=== PATIENT | male | born 1985 | race Hispanic/Latino ===

== ENCOUNTER 2019-10-29 12:25 | Emergency (ER) | payer SELFPAY ==
[2019-10-29 12:33] VITALS: BP 132/88; PULSE 82; RESP 18; TEMP 36.8; O2SAT 96
--- NOTE | 2019-10-29 12:49 | ECG_ITS ---
Measurements Intervals [place] Rate: 84 P: 58 [place]: 160 QRS: 41 QRSD: 79 T: 22 QT: 350 QTc: 414 Interpretive Statements SINUS RHYTHM RSR' IN V1 OR V2, PROBABLY NORMAL VARIANT BORDERLINE ECG Electronically Signed On 10-29-2019 15:24:51 CDT by Raghu Ramírez D.O.
--- NOTE | 2019-10-29 12:52 | ED.GENADULT ---
HPI - General Adult General Chief complaint: Chest Pain Stated complaint: Pain in stomach Source: patient and RN notes reviewed Mode of arrival: ambulatory Limitations: no limitations History of Present Illness HPI narrative: This is a 34 years old male presents to the office for an evaluation of epigastric/chest pain for two hours prior to arrival. Pain is worse when he touches it or takes a deep breathe. Denies associated symptoms such as cough, congestion, vomiting or diarrhea. Last meal was 4pm yesterday; he has been sleeping till the pain woke him. Rate pain 6/10; describes as heaving at times. Denies cardiac history in the past. He admits to alcohol abuse in the past but not recently, however he still drink occasionally. He admits to smoking about 3 cigarretes/month. Related Data Allergies Allergy/AdvReac Type Severity Reaction Status Date / Time No Known Allergies Allergy Verified 10/29/19 13:15 Review of Systems Review of Systems: Narrative: CONSTITUTIONAL: Denies fever, chills ENT: Denies rhinorrhea, congestion, sore throat, otalgia. CARDIOVASCULAR: Denies chest pain, palpitation, edema. RESPIRATORY: Denies dyspnea, wheezing, cough GASTROINTESTINAL: Denies nausea, vomiting, diarrhea. GENITOURINARY: Denies urinary symptoms SKIN: Denies rash MUSCULOSKELETAL: Denies acute back pain NEUROLOGIC: Denies lightheaded PMFSH Past Medical History Medical History (Updated 10/29/19 @ 13:17 by JIMBO Duarte) Diabetes mellitus, type II when he was in [place] >6years ago Social History Social History (Updated 10/29/19 @ 13:17 by JIMBO Duarte) Smoking status: Current every day smoker Tobacco type: cigarettes Alcohol intake: current Substance use: never Comments At time of signature, I agree with nursing past medical, surgical, social and family history. There is no relevant family history pertinent to the presenting complaint. Exam Narrative: Exam Narrative: GENERAL: This is a well-nourished, well-developed patient, in no apparent distress. EYES: Sclera clear/white. Vision is grossly intact. EARS: External ears normal, auditory canals clear and without drainage, TMs normal without perforation. Hearing grossly intact. NOSE: External nose normal with no obvious nasal discharge, nares without redness, no rhinorrhea. THROAT: Mucous membranes moist, posterior pharynx clear. NECK: Neck supple, non-tender without lymphadenopathy, masses or thyromegaly. CARDIOVASCULAR: Regular rate and rhythm without murmurs, gallops, or rubs. RESPIRATORY: Clear to auscultation. Breath sounds equal bilaterally. No wheezes, rales, or rhonchi. GASTROINTESTINAL: Abdomen soft, non-tender, nondistended. Bowel sounds are active. No hepato-splenomegaly, or palpable masses. No guarding. SKIN: warm, intact with no suspicious lesions or rash, good texture and turgor. NEURO: awake, alert, and oriented to person, place and time. There were no obvious focal neurologic abnormalities. Steady gait Javier Coma Scale Eye Opening: Spontaneous 4 [place] Coma Scale Motor: Obeys Commands 6 [place] Coma Scale Verbal: Oriented 5 Medical Decision Making MDM Narrative Medical decision making narrative: Discharge instructions reviewed with patient, as well as provided in writing per nursing staff. The instructions also include specific and strict return/GO TO THE ER as well as f/u information. All questions have been answered, and the patient deny any further questions with discharge and discharge plan. Differential Diagnosis Differential Diagnosis: CAD, gastritis, colitis, gastroeneteritis ECG Data EKG #1: Attestation: I personally reviewed and interpreted this ECG as follows: ECG completion date: 10/29/19 ECG completion time: 12:59 Prior ECG tracings: not available for review EKG Interpretation: normal rate, sinus rhythm and no ectopy Critical Care Time Critical Care Time Critical Care Time: No D
== END 2019-10-29 13:18 | disposition home or self-care (01) ==
PROVIDERS: Emergency Provider Nurse Practitioner
DX: R10.13 Epigastric pain (principal); F17.210 Nicotine dependence, cigarettes, uncomplicated
CPT/HCPCS: 93005; 99213; G0463